=== PATIENT | male | born 1995 | race African-American/Black ===

== ENCOUNTER 2022-03-28 17:49 | Emergency (ER) | payer SELFPAY ==
[2022-03-28 18:00] VITALS: BP 185/101; PULSE 89; RESP 24; TEMP 36.2; O2SAT 100
--- NOTE | 2022-03-28 18:08 | ED.GENADULT ---
HPI - General Adult General Chief complaint: Headache Stated complaint: high blood pressure Time Seen by Provider: 03/28/22 18:08 Source: patient, RN notes reviewed and old records reviewed Mode of arrival: ambulatory Limitations: no limitations History of Present Illness HPI narrative: 26 year old male present to [facility] with complaints of recently buying blood pressure cuff from [employer] and checking his blood pressure which has been elevated with noted headache pain today. Patient reports that he was on blood pressure medication in 2018 but he was taken off the medication but he thinks it was hydralazine but is unsure of dose. Patient denies any chest pain or shortness of breath, denies any flushing or any vision changes or swelling. Patient states that he has been in a lot of stress lately,mother passed about a month ago, has not been getting a lot of sleep and he is getting ready to start new job in about a month.Patient states that mother had diabetes and was on dialysis and she from pulmonary embolism. Patient also reports that his brother from PE also. Patient denies any known history of abnormal blood clotting. MD complaint: elevated blood pressure, headache Onset (ago): day(s) (2) Related Data Allergies Allergy/AdvReac Type Severity Reaction Status Date / Time ibuprofen Allergy Unknown Verified 03/28/22 18:31 Review of Systems Review of Systems: CONSTITUTIONAL: Denies fever, chills, or sweats. EYES: Denies visual changes, redness, or discharge. ENT: Denies rhinorrhea, congestion, sore throat, or otalgia. CARDIOVASCULAR: Denies chest pain, palpitations, or edema. RESPIRATORY: Denies cough or dyspnea. GASTROINTESTINAL: Denies abdominal pain, nausea, vomiting, or diarrhea. GENITOURINARY: Denies dysuria or hematuria. SKIN: Denies rash or itching. MUSCULOSKELETAL: Denies back pain, joint pain, or myalgia. NEUROLOGIC: Positive for headache,no numbness, or weakness. PSYCHIATRIC: Positive for anxiety or depression. All systems reviewed & are unremarkable except as noted in HPI and below PMFSH Past Medical History Medical History (Updated 03/28/22 @ 20:22 by Yasmine Neves NP) Anxiety Hypertension Surgical History Surgical History (Updated 03/28/22 @ 20:25 by Yasmine Neves NP) H/O hand surgery Family History Family History (Updated 03/28/22 @ 20:30 by Yasmine Neves NP) Mother Pulmonary embolism Diabetes mellitus Sibling Pulmonary embolism Social History Social History (Updated 03/28/22 @ 20:24 by Yasmine Neves NP) Smoking status: Never smoker Alcohol intake: current Alcohol use details: rare social Substance use type: does not use Living arrangements: with family Gender identity (if verbalized by the patient): Male Comments At time of signature, agree with nursing past medical, surgical, social and family history. There is no relevant family history pertinent to the presenting complaint Exam Narrative: GENERAL: Well-appearing, well-nourished, and in no acute distress. HEAD: Normocephalic, atraumatic. EYES: PERRLA and EOMI. ENT: Nares clear, no rhinorrhea or epistaxis. Mucous membranes moist.TM's normal with good light reflex, throat pink no lesions or exudates or tonsil swelling NECK: Supple.no lymphadenopathy CHEST: Clear to auscultation. No respiratory distress.SA2 100% on room air HEART: Regular rate and rhythm. No murmur heard. Normal peripheral pulses, denies any chest pain, pressure, or any palpitations ABDOMEN: Soft, nontender, nondistended, normal active bowel sounds. EXTREMITIES: Normal range of motion. No edema. SKIN: Warm, dry, no rash. NEURO: No focal deficits. Alert and oriented x3.gait steady no weakness to extremities, face is symmetrical Course Course Level of Care: Express Care Visit Vital Signs Vital signs: Vital Signs Temperature 36.2 C L 03/28/22 18:00 Pulse Rate 89 03/28/22 18:00 Respiratory Rate 24 H 03/28/22 18:00 Blood
[2022-03-28] MEDS: cloNIDine HCL 0.1 MG TABLET PO (18:29)
[2022-03-28 18:30] VITALS: BP 180/96; PULSE 84
[2022-03-28 18:50] VITALS: BP 141/96; PULSE 82
[2022-03-28 19:00] VITALS: BP 140/88; PULSE 80
== END 2022-03-28 19:00 | disposition home or self-care (01) ==
PROVIDERS: Emergency Provider Registered Nurse
DX: I10 Essential (primary) hypertension (principal); R51.9 Headache, unspecified
CPT/HCPCS: 99213; A9270; G0463

== ENCOUNTER 2022-04-01 14:56 | Emergency (ER) | payer OTHER, SELFPAY ==
[2022-04-01] VITALS (7 sets, daily range): BP systolic 150–186; BP diastolic 84–120; PULSE 65–75; RESP 11–23; TEMP 36.2–36.7; O2SAT 99–100
--- NOTE | ~2022-04-01 | XR_ITS ---
EXAMINATION: XR chest 2V Exam Date/Time: 04/01/2022 15:34 CDT HISTORY: chest pain MIDSTERNAL X TODAY, ELEVATED BP Comparison: None available. RESULT: Lines, tubes, and devices: None. Lungs and pleura: Clear. Cardiomediastinal silhouette: Normal. Other: No acute osseous or upper abdominal finding. IMPRESSION: No acute cardiopulmonary process. Reviewed, dictated and finalized at location K.
--- NOTE | 2022-04-01 14:58 | ECG_ITS ---
Measurements Intervals [place] Rate: 64 P: 47 AK: 159 QRS: 38 QRSD: 111 T: 20 QT: 367 QTc: 381 Interpretive Statements SINUS RHYTHM NONSPECIFIC INTRAVENTRICULAR CONDUCTION DELAY BORDERLINE ECG NO PREVIOUS ECG AVAILABLE FOR COMPARISON Electronically Signed On 04-01-2022 16:38:34 CDT by Xavier Tijerina M.D.
[2022-04-01 15:24] LABS: Alanine Aminotransferase 29 U/L (6-50); Albumin Level 4.7 g/dL (3.5-5.1); Alkaline Phosphatase 71 U/L (38-126); Anion Gap 13 mmol/L (8-16); Aspartate Amino Transferase 25 U/L (17-59); Bilirubin,Total 0.5 mg/dL (0.2-1.3); Blood Urea Nitrogen 13 mg/dL (9-20); Carbon Dioxide 25 mmol/L (22-30); Chloride 99 mmol/L (98-107); Estimated CRCL calculation 168 ml/min; Estimated Glomerular Filt Rate > 60; Glucose 115 mg/dL (65-110); Lipase 59 U/L (23-300); Potassium 3.9 mmol/L (3.4-5.0); Sodium 137 mmol/L (137-145)
[2022-04-01 15:25] LABS: Prothrombin Time 12.8 Seconds (11.1-14.7)
[2022-04-01 15:26] LABS: Partial Thromboplastin Time 27.5 SECONDS (22.3-36.8)
[2022-04-01 15:28] LABS: Basophils Percent Auto 0.4 % (0.2-1.2); Eosinophils Percent Auto 0.1 % (0-4.4); Hematocrit 50.3 % (42.0-52.0); Hemoglobin 16.1 g/dL (14.0-18.0); Immature Granulocyte Absolute 0.02 K/mm3 (0.00-0.031); Immature Granulocyte Percent A 0.3 % (0-0.5); Lymphocytes Percent Auto 23.7 % (18.3-44.2); Mean Corpuscular Hemoglobin 26.7 pg (26-34); Mean Corpuscular Volume 83.3 fl (80-100); Mean Platelet Volume 10.4 fl (7.4-10.4); Monocytes Absolute Auto 0.4 K/mm3 (0.1-0.6); Monocytes Percent Auto 5.6 % (2.6-8.5); Neutrophils Absolute Auto 4.7 K/mm3 (1.3-6.7); Neutrophils Percent Auto 69.9 % (45.5-73.1); Platelet Count Result 336 k/mm3 (150-375); Red Blood Count 6.04 M/mm3 (4.6-6.20); Red Cell Distribution Width 15.8 % (11.5-14.5); White Blood Count 6.7 K/mm3 (4.5-10.0)
[2022-04-01 15:36] LABS: Troponin I < 0.012 ng/mL (0.000-0.034)
[2022-04-01 18:42] LABS: Troponin I < 0.012 ng/mL (0.000-0.034)
--- NOTE | 2022-04-01 21:39 | ED.CHESTPAIN ---
HPI - Chest Pain General Chief Complaint: Chest Pain Stated Complaint: chest pain/pressure Time Seen by Provider: 04/01/22 21:37 History of Present Illness HPI narrative: Patient is a 26-year-old male here for evaluation of elevated blood pressure at home today. He states that his systolic reading was about 170. He does have blood pressure medicines prescribed at home, but he has not picked them up yet. He saw his PCP this morning who recommended ED evaluation, because patient was having some chest pain. Patient states the pain lasted for a couple of seconds on the right side of his chest, felt like a twinge , and resolved without intervention. Denies any nausea, vomiting, diaphoresis, shortness of breath. Related Data Allergies Allergy/AdvReac Type Severity Reaction Status Date / Time ibuprofen Allergy Unknown Verified 03/28/22 18:31 Review of Systems Review of Systems: Gen.: Denies fevers or chills Eyes: Denies eye pain or visual change ENT: Denies congestion Respiratory: Denies shortness of breath or cough CV: Reports chest pain, resolved. Denies palpitations GI: Denies abdominal pain nausea, emesis or diarrhea denies burning, urgency, frequency or hematuria Musculoskeletal: Denies back pain or muscle pain Neuro: Denies numbness, tingling, weakness or focal weakness Skin: Denies rash Except as documented, all other systems reviewed and negative PMFSH Past Medical History Medical History (Updated 04/01/22 @ 21:55 by Christiana Gibson PA-C) Anxiety Hypertension Surgical History Surgical History (Updated 03/28/22 @ 20:25 by Yasmine Neves NP) H/O hand surgery Family History Family History (Updated 03/28/22 @ 20:30 by Yasmine Neves NP) Mother Pulmonary embolism Diabetes mellitus Sibling Pulmonary embolism Social History Social History (Updated 03/28/22 @ 20:24 by Yasmine Neves NP) Smoking status: Never smoker Alcohol intake: current Alcohol use details: rare social Substance use type: does not use Gender identity (if verbalized by the patient): Male Exam Narrative: APPEARANCE: Well appearing, no pain in distress, well-nourished. Head: Normocephalic and atraumatic. EYES: PERRLA/EOMI, conjunctivae clear NOSE: No nasal drainage EARS: External ear normal in appearance THROAT: Oropharynx is clear. Mucous membranes are moist. NECK: Supple. No adenopathy, no masses. RESPIRATORY: Airway patent, respirations nonlabored. Clear to auscultation bilaterally, no rales, rhonchi, wheezing. CARDIOVASCULAR: Equal pulses in all 4 extremities. Regular rate and rhythm without murmurs, rubs, or gallops. ABDOMINAL: Normoactive bowel sounds. Soft, nontender, nondistended. No rebound tenderness or guarding. MUSCULOSKELETAL: Extremities are warm and well-perfused. Moves all extremities well. No edema. NEURO: Normal speech. No focal neurologic deficits. SKIN: Skin is warm and dry. No rashes. PSYCHIATRIC: Normal affect/mood. Course Vital Signs Vital signs: Vital Signs Temperature 98.0 F 04/01/22 15:00 Pulse Rate 72 04/01/22 15:00 Respiratory Rate 18 04/01/22 15:00 Blood Pressure 186/110 H 04/01/22 15:00 Pulse Oximetry 100 04/01/22 15:00 Oxygen Delivery Room Air 04/01/22 15:00 Temperature 97.1 F L 04/01/22 20:24 Pulse Rate 69 04/01/22 20:24 Respiratory Rate 18 04/01/22 20:24 Blood Pressure 168/86 H 04/01/22 20:24 Pulse Oximetry 100 04/01/22 20:24 Oxygen Delivery Room Air 04/01/22 15:00 MDM - Chest Pain MDM Narrative Medical decision making narrative: 26-year-old male here for evaluation of elevated BP at home with an episode of chest pain, now resolved. BP 186/110 upon arrival, rechecked and was 168/86. Cr normal. exam without evidence of volume overload so doubt heart failure. EKG without signs of active ischemia. Given the timing of pain to ER presentation, delta troponin was negative so doubt NSTEMI. Presentation not consistent
[2022-04-01] MEDS: hydroCHLOROthiazide 25 MG TABLET PO (22:17)
== END 2022-04-01 22:20 | disposition home or self-care (01) ==
LOC: ANHED 22:10
PROVIDERS: Emergency Medicine; Emergency Provider Preventive Medicine Aerospace Medicine
DX: I10 Essential (primary) hypertension (principal); I45.9 Conduction disorder, unspecified
CPT/HCPCS: 36415; 71046; 80053; 83690; 84484; 85025; 85610; 85730; 93005; 99284; A9270

== ENCOUNTER 2023-10-31 17:19 | Emergency (ER) | payer OTHER, SELFPAY ==
--- NOTE | ~2023-10-31 | XR_ITS ---
EXAMINATION: XR ankle LT min 3V DATE: 10/31/2023 17:50 INDICATION: Left ankle pain TECHNIQUE: Anteroposterior, lateral, mortise, and additional oblique view of the ankle were obtained. COMPARISON: None. FINDINGS: There is subtle heterotopic ossification projecting lateral to the midfoot with adjacent so ft tissue swelling. Alignment of the ankle is normal. No ankle fracture or osteochondral lesion are i dentified. IMPRESSION: 1. Possible lateral midfoot avulsion fracture. Reviewed, dictated and finalized at location F. RE ADMINISTRATOR
--- NOTE | ~2023-10-31 | XR_ITS ---
EXAMINATION: XR foot LT 2V INDICATION: Left foot pain TECHNIQUE: Two views of the left foot are obtained. COMPARISON: None available FINDINGS: There is heterotopic ossification projecting lateral to the cuboid. There is adjacent soft tissue swelling. Bone alignment is normal. The joint spaces are maintained. IMPRESSION: 1. Possible avulsion injury involving the lateral aspect of the cuboid. Reviewed, dictated and finalized at location F. [employer]IT STUDIO PHOTOGRAPHER
[2023-10-31 18:00] VITALS: BP 184/136; PULSE 88; RESP 18; TEMP 36.2; O2SAT 100
--- NOTE | 2023-10-31 18:28 | ED.GENADULT ---
[facility] - General Adult General Chief complaint: Extremity Injury, Lower Stated complaint: rolled his left foot Time Seen by Provider: 10/31/23 18:04 Source: patient Mode of arrival: ambulatory Limitations: no limitations History of Present Illness [facility] narrative: This is a 28-year-old male who presents to the ED with chief complaint of left ankle injury. Reports that he inverted the ankle while walking up stairs and trying to turn. He was caring furniture helping someone move. [place] the ankle overall and had immediate pain. Denies any further sites of pain or injury. Denies numbness or weakness. Related Data Allergies Allergy/AdvReac Type Severity Reaction Status Date / Time ibuprofen Allergy Unknown Verified 03/28/22 18:31 Review of Systems Review of Systems: All systems as dictated in [facility] Past Medical History Medical History (Updated 11/01/23 @ 00:02 by Cecilia Sanchez) Anxiety Hypertension Surgical History Surgical History (Updated 03/28/22 @ 20:25 by Yasmine Neves NP) H/O hand surgery Family History Family History (Updated 03/28/22 @ 20:30 by Yasmine Neves NP) Mother Pulmonary embolism Diabetes mellitus Sibling Pulmonary embolism Social History Social History (Updated 03/28/22 @ 20:24 by Yasmine Neves NP) Smoking status: Never smoker Alcohol intake: current Alcohol use details: rare social Substance use type: does not use Living arrangements: with family Gender identity (if verbalized by the patient): Male Exam Narrative: GENERAL: Well-appearing, well-nourished, and in no acute distress. HEAD: Normocephalic, atraumatic. EYES: PERRLA and EOMI. ENT: Nares clear, no rhinorrhea or epistaxis. Mucous membranes moist. Oropharynx without tonsillar hypertrophy exudate or other lesions. NECK: Supple. No adenopathy or masses. CHEST: No respiratory distress. Clear to auscultation. No wheezes rales or rhonchi HEART: Regular rate and rhythm. No murmur heard. Normal peripheral pulses. ABDOMEN: Soft, nontender, nondistended, normal active bowel sounds. MSK: Moderate tenderness and swelling to the dorsum of the left foot. No crepitus or bruising. Neurovascularly intact distally. Normal range of motion. No edema. SKIN: Warm, dry, no rash. NEURO: Alert and oriented x3. No focal deficits. PSYCH: Normal mood and affect. Course Vital Signs Vital signs: Vital Signs Temperature 97.2 F L 10/31/23 18:00 Pulse Rate 88 10/31/23 18:00 Respiratory Rate 18 10/31/23 18:00 Blood Pressure 184/136 H 10/31/23 18:00 Pulse Oximetry 100 10/31/23 18:00 Oxygen Delivery Room Air 10/31/23 18:00 Temperature 97.2 F L 10/31/23 18:00 Pulse Rate 88 10/31/23 18:00 Respiratory Rate 18 10/31/23 18:00 Blood Pressure 184/136 H 10/31/23 18:00 Pulse Oximetry 100 10/31/23 18:00 Oxygen Delivery Room Air 10/31/23 18:00 Medical Decision Making MDM Narrative Medical decision making narrative: This is a 28-year-old male who presents to the ED with chief complaint of left foot inversion injury. Vitals show elevated blood pressure, likely due to pain but otherwise normal. Exam shows left foot swelling and tenderness. X-rays do not reveal any fracture. There is evidence of avulsion injury, consistent with ankle and foot sprain. Crutches and Henry wrap given. Pt will be discharged in stable condition. Return precautions given and supportive measures discussed. Pt is understanding and agreeable with plan for discharge and follow-up with PCP. Vital Signs Vital Signs: Vital Signs Temperature 97.2 F L 10/31/23 18:00 Pulse Rate 88 10/31/23 18:00 Respiratory Rate 18 10/31/23 18:00 Blood Pressure 184/136 H 10/31/23 18:00 Pulse Oximetry 100 10/31/23 18:00 Oxygen Delivery Room Air 10/31/23 18:00 Temperature 97.2 F L 10/31/23 18:00 Pulse Rate 88 10/31/23 18:00 Respiratory Rate 18 10/31/23 18:00 Blood Pressure 184/
== END 2023-10-31 19:04 | disposition home or self-care (01) ==
PROVIDERS: Emergency Provider Physician Assistant
DX: S93.402A Sprain of unspecified ligament of left ankle, initial encounter (principal); S96.912A Strain of unspecified muscle and tendon at ankle and foot level, left foot, initial encounter; I10 Essential (primary) hypertension; X50.0XXA Overexertion from strenuous movement or load, initial encounter
CPT/HCPCS: 73610; 73620; 99283